=== PATIENT | male | born 1955 | race Hispanic/Latino ===

== ENCOUNTER 2019-08-31 12:32 | Emergency (ER) | payer SELFPAY ==
[~2019-08-31] VITALS: Ht 162.6 cm; Wt 88.7 kg
--- NOTE | 2019-08-31 13:24 | Diagnostic Imaging Report ---
Exam: Right knee radiographs-3 views History: Fall. Comparison: None. Findings/Impression: No evidence of acute fracture or malalignment. Mild prepatellar soft tissue edema. No suprapatellar joint effusion. Mild degenerative changes of the knee. Signed by: Dr. Yoon Abad MD on 08/31/2019 1:21 PM
[2019-08-31] MEDS ORDERED: KEFLEX500 MG PO (13:44)
[2019-08-31] MEDS ORDERED: BACITRACIN ZINC 0.9GM TP ONE (13:49)
[2019-08-31 13:51] VITALS: BP 127/84
== END 2019-08-31 13:57 | disposition home or self-care (01) ==
LOC: FSED 12:32
DX: S81.011A Laceration without foreign body, right knee, initial encounter (principal); W11.XXXA Fall on and from ladder, initial encounter; Y92.008 Other place in unspecified non-institutional (private) residence as the place of occurrence of the external cause
CPT/HCPCS: 99284